=== PATIENT | female | born 1965 | race Caucasian/White ===

== ENCOUNTER 2018-08-29 15:21 | Observation (INO) ==
[2018-08-29] MEDS ORDERED: DOXYCYCLINE HYCLATE INJ 100 MG in SODIUM CHLORIDE 0.9% 100 ML IV STA (16:17)
[2018-08-29] MEDS ORDERED: ACETAMINOPHEN 500 MG TABLET PO STA (16:17)
[2018-08-29] MEDS ORDERED: SODIUM CHLORIDE 0.9% 1,000 ML IV STA (16:17)
[2018-08-29 16:58] LABS: Basophils % 0.2 % (0.0-0.8); Eosinophils % 0.1 % (0.00-10.9); Hematocrit 34.4 VOL% (35.7-47.0); Hemoglobin 11.2 GM/DL (12.0-16.0); Immature Granulocytes % 0.6 %; Immature Granulocytes Absolute 0.08 #; Lymphocytes # 3.2 10*3/uL (1.4-4.0); Lymphocytes % 24.1 % (21.3-54.2); Mean Corpuscular HGB Conc 32.6 GM/DL (32-36); Mean Corpuscular Volume 92.5 FL (87-102); Mean Platelet Volume 10.3 FL (9.6-12.0); Monocytes % 6.1 % (1.7-12.7); Neutrophils % 68.9 % (38.7-73.9); Platelet Count 355 T/CUMM (130-400); Red Blood Count 3.72 MC/CUMM (3.8-5.5); White Blood Count 13.4 T/CUMM (4-12)
[2018-08-29 17:13] LABS: Alanine Aminotransferase 24 U/L (13-56); Albumin 3.7 G/DL (3.4-5.0); Alkaline Phosphatase 104 U/L (45-117); Aspartate Amino Transferase 16 U/L (0-37); Bilirubin,Total < 0.39 MG/DL (0.2-1.0); Blood Urea Nitrogen 11 MG/DL (7-18); Calcium 8.9 MG/DL (8.5-10.1); Glucose 122 MG/DL (74-106); Osmolality,Calculated 276.5 MOS/KG (273-304); Total Protein 7.2 G/DL (6.4-8.3)
[2018-08-29 17:44] LABS: Apearance,Urine CLEAR (Clear); Bacteria,Urine Occasional /HPF (Few); Bilirubin,Urine Negative (Negative); Blood, Urine Negative (Negative); Glucose,Urine (UA) Negative (Negative); Hyaline Casts,Urine 10 /LPF (0-3); Ketones,Urine Negative (Negative); Mucus,Urine Occasional /LPF (Occasional); Nitrite,Urine Negative (Negative); Protein,Urine Negative; Squamous Epithelial Cell,Urine Occasional /HPF (0-10); Urine Color Yellow (Yellow); Urine Specific Gravity 1.017 (1.001-1.035); Urine Urobilinogen < 2.0 EU/DL (0.2-1.0)
[2018-08-29] MEDS ORDERED: MAGNESIUM OXIDE 400 MG TABLET PO ONE (17:45)
[2018-08-29 18:03] LABS: Sedimentation Rate-Westergren 45 MM/HR (0-30)
[2018-08-29] MEDS ORDERED: GLUCAGON 1 MG VIAL IM PRN (20:22)
[2018-08-29] MEDS ORDERED: DEXTROSE 50% 25 GM/50 ML VIAL IV PRN (20:22)
[2018-08-29] MEDS ORDERED: ONDANSETRON 4 MG/2 ML VIAL IV PRN (20:22)
[2018-08-29] MEDS ORDERED: ALPRAZolam 0.5 MG TABLET PO PRN (20:28)
[2018-08-29] MEDS ORDERED: ZALEPLON 5 MG CAPSULE PO PRN (20:28)
[2018-08-29] MEDS ORDERED: CYANOCOBALAMIN 500 MCG TABLET PO SCH (21:00)
[2018-08-29] MEDS ORDERED: ATORVASTATIN 80 MG TABLET PO SCH (21:00)
[2018-08-29] MEDS ORDERED: ESCITALOPRAM 10 MG TABLET PO SCH (21:00)
[2018-08-29] MEDS ORDERED: PITAVASTATIN 2 MG TABLET PO SCH (21:00)
[2018-08-29] MEDS ORDERED: MAGNESIUM SULF RIDER 1 GM in PREMIX 1 EACH IV ONE (21:19)
[2018-08-29] MEDS ORDERED: ENOXAPARIN 40 MG/0.4 ML SYRINGE SUBCUT SCH (21:30)
[2018-08-29] MEDS: metFORMIN 500 MG TABLET PO SCH (21:45)
[2018-08-29] MEDS: INSULIN REGULAR 100 UNIT/ML SUBCUT SCH (21:46)
[2018-08-29] MEDS: SODIUM CHLORIDE 0.9% 1,000 ML IV SCH (22:15)
[2018-08-30] MEDS ORDERED: DOXYCYCLINE HYCLATE INJ 100 MG in SODIUM CHLORIDE 0.9% 100 ML IV SCH (04:00)
[2018-08-30 05:56] LABS: Basophils % 0.3 % (0.0-0.8); Eosinophils % 0.1 % (0.00-10.9); Hematocrit 31.3 VOL% (35.7-47.0); Hemoglobin 10.5 GM/DL (12.0-16.0); Immature Granulocytes % 0.4 %; Immature Granulocytes Absolute 0.04 #; Lymphocytes # 3.6 10*3/uL (1.4-4.0); Lymphocytes % 35.9 % (21.3-54.2); Mean Corpuscular HGB Conc 33.5 GM/DL (32-36); Mean Corpuscular Volume 93.2 FL (87-102); Mean Platelet Volume 10.4 FL (9.6-12.0); Monocytes % 6.3 % (1.7-12.7); Platelet Count 316 T/CUMM (130-400); Red Blood Count 3.36 MC/CUMM (3.8-5.5); Red Cell Distribution Width 12.9 % (9.3-17.3)
[2018-08-30 06:29] LABS: Alanine Aminotransferase 25 U/L (13-56); Albumin 2.8 G/DL (3.4-5.0); Alkaline Phosphatase 86 U/L (45-117); Aspartate Amino Transferase 19 U/L (0-37); Bilirubin,Total < 0.39 MG/DL (0.2-1.0); Blood Urea Nitrogen 10 MG/DL (7-18); Glucose 117 MG/DL (74-106); Osmolality,Calculated 278.4 MOS/KG (273-304); Total Protein 6.2 G/DL (6.4-8.3)
[2018-08-30] MEDS: metFORMIN 500 MG TABLET PO SCH (08:15)
[2018-08-30] MEDS: INSULIN REGULAR 100 UNIT/ML SUBCUT SCH ×2 (08:15→12:29)
[2018-08-30] MEDS ORDERED: PANTOPRAZOLE 40 MG TABLET PO SCH (09:00)
[2018-08-30] MEDS: SODIUM CHLORIDE 0.9% 1,000 ML IV SCH (09:14)
[2018-08-30] MEDS ORDERED: MAGNESIUM OXIDE 400 MG TABLET PO ONE (10:25)
[2018-08-30 10:33] LABS: Vitamin B12 > 2000 PG/ML (211-911)
[2018-08-30 11:57] VITALS: BP 107/65
[2018-08-30] MEDS ORDERED: DOXYCYCLINE HYCLATE 100 MG CAPSULE PO SCH (21:00)
[2018-09-01 16:57] LABS: Ehrlichia Chaffeensis (HME)IgG <1:64 titer (<1:64)
== END 2018-08-30 13:16 | disposition home or self-care (01) ==
LOC: N.EDINP 15:21 → N.ED 15:21 → N.2E 21:03
PROVIDERS: ADMIT Internal Medicine; ATTEND Internal Medicine